=== PATIENT | male | born 1955 | race Hispanic/Latino ===

== ENCOUNTER 2016-06-11 22:13 | Emergency (ER) | payer BC ==
[~2016-06-11] VITALS: Ht 165.1 cm; Wt 81.6 kg
[~2016-06-11 22:13] MED LIST: MECL-106 PO; MECL25TA56 PO; PANT40TA PO; PANT40TA3; PROM25SU10 PR; SUVO20TA2; ZLP5T PO
--- OUTSIDE RECORDS SUMMARY | 2016-06-11 22:18 | XMS REPORT | Continuity of Care Document ---
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 Name Role Phone XANDER ALEXANDER MD PCP Insurance Providers Payer Name Policy Number Subscriber Name Relationship [facility] [id number] Eugene Verma 17 Self / Same As Patient Advance Directives Directive Response Recorded Date/Time Advance Directives No 03/07/16 9:13pm Health Care Power of Appointment Setter No 03/07/16 9:13pm Organ Donor Yes 03/07/16 9:13pm Resuscitation Status Full Code 03/07/16 9:13pm Chief Complaint and Reason for Visit Chief Complaint Dizziness/Syncope Reason for Visit Vertigo Problems Active Problems Medical Problem Onset Date Status Vertigo Unknown Acute Medications Current Home Medications Medication Dose Units Route Directions Days/Qty Instructions Start Date Suvorexant 20 Mg 30 03/07/16 Pantoprazole Sodium 40 Mg 30 03/07/16 Meclizine Hcl 25 Mg 25-50 Mg Oral Every 6 Hours for Dizziness 30 03/07 Past Home Medications Medication Directions Ordered Status Meclizine Hcl 25 Mg Tablet, 1 Each Oral Four Times Daily 08/04/09 Discontinued Zolpidem Tartrate 5 Mg Tablet, 1 Each Oral Bedtime 11/18/14 Discontinued Social History Social History Problem Response Recorded Date/Time Alcohol Use Denies Use 03/07/2016 9:13pm Recreational Drug Use No 03/07/2016 9:13pm Recent Foreign Travel No 03/07/2016 9:13pm Recent Infectious Disease Exposure No 03/07/2016 9:13pm Hospitalization with Isolation Denies 03/07/2016 9:13pm Sexually Transmitted Disease No 03/07/2016 9:13pm Smoking Status Never a Smoker 03/07/2016 9:13pm Do you dip or chew tobacco? No 11/18/2014 7:45am Recent Hopitalizations No 03/07/2016 9:13pm Sexually Transmitted Disease No 03/07/2016 9:13pm Hospitalization with Isolation Denies 03/07/2016 9:13pm Query Response Start Date Stop Date Smoking Status Never a Smoker Hospital Discharge Instructions No hospital discharge instructions. Plan of Care Discharge Date 03/07/16 10:44pm Disposition 01 HOME, SELF-CARE Instructions/Education Provided Vertigo (ED) Prescriptions See Medication Section Referrals XANDER ALEXANDER MD - Primary Care Physician Additional Instructions/Education SLOW POSITION CHANGES FOLLOW UP WITH DR. ALEXANDER IF SYMPTOMS PERSIST RETURN TO ER IF WORSE All discharge instructions reviewed with patient and/or family. Voiced understanding. Functional Status Query Response Date Recorded Patient Orientation Person Place Time Situation March 07, 2016 9:13pm Comprehension Ability Understands Concepts March 07, 2016 9:13pm Allergies, Adverse Reactions, Alerts Allergen Type Severity Reaction Status Last Updated NKANo Known Allergies Allergy Mild Active 08/04/09 Immunizations No immunization records. Vital Signs Acute Vital Signs Vital Response Date/Time Temperature (Fahrenheit) 97.8 degrees F (97.6 - 99.5) 03/07/2016 9:13pm Temperature (Calculated Celsius) 36.39217 degrees C (36.4 - 37.5) 03/07/2016 9:13pm Pulse Rate (adult) 68 bpm (60 - 90) 03/07/2016 10:43pm Respiratory Rate 12 bpm (12 - 24) 03/07/2016 10:43pm O2 Sat by Pulse Oximetry 97 % (88 - 100) 03/07/2016 10:43pm Blood Pressure 160/107 mm Hg 03/07/2016 10:43pm Blood Pressure Mean 124 mm Hg 03/07/2016 9:13pm Pain Numeric Pain Scale 0-No Pain 03/07/2016 9:13pm Height (Feet) 5 feet 03/07/2016 9:13pm Height (Inches) 5.00 inches 03/07/2016 9:13pm Height (Calculated Centimeters) 165.585034 cm 03/07/2016 9:13pm Weight (Pounds) 180 pounds 03/07/2016 9:13pm Weight (Calculated Grams) 56717.443 gm 03/07/2016 9:13pm Weight (Calculated Kilograms) 81.406623 kilograms 03/07/2016 9:13pm Calculated BMI 29.62 03/07/2016 9:13pm Capillary Refill Capillary Refill Less Than 3 Seconds 03/07/2016 9:13pm Results Laboratory Results Test Name Result Units Flags Reference Collection Date/Time Result Date/ Time Comments White Blood Count 6.3 10^3/uL 4.3-11.0 03/07/2016 9:20pm 03/07/2016 9: 31pm Red Blood Count 4.97 10^6/uL 4.35-5.85 03/07/2016 9:20pm 03/07/2016 9: 31pm Hemoglobin 14.9 G/DL 13.3-17.7 03/07/2016 9:20pm 03/07/2016 9:31pm Hematocrit 45 % 40-54 03/07/2016 9:20pm 03/07/2016 9:31pm Mean Corpuscular Volume 90 FL 80-99 03/07/2016 9:20pm 03/07/2016 9: 31pm Mean Corpuscular Hemoglobin 30 PG 25-34 03/07/2016 9:20pm 03/07/2016 9: 31pm Mean Corpuscular Hemoglobin Concent 34 G/DL 32-36 03/07/2016 9:20pm 9:31pm Red Cell Distribution Width 13.6 % 10.0-14.5 03/07/2016 9:20pm 2015 9:31pm Platelet Count 186 10^3/uL 130-400 03/07/2016 9:20pm 03/07/2016 9:31pm Mean Platelet Volume 10.1 FL 7.4-10.4 03/07/2016 9:20pm 03/07/2016 9: 31pm Neutrophils (%) (Auto) 71 % 42-75 03/07/2016 9:20pm 03/07/2016 9:31pm Lymphocytes (%) (Auto) 18 % 12-44 03/07/2016 9:20pm 03/07/2016 9:31pm Monocytes (%) (Auto) 7 % 0-12 03/07/2016 9:20pm 03/07/2016 9:31pm Eosinophils (%) (Auto) 4 % 0-10 03/07/2016 9:20pm 03/07/2016 9:31pm Basophils (%) (Auto) 0 % 0-10 03/07/2016 9:20pm 03/07/2016 9:31pm Neutrophils # (Auto) 4.5 X 10^3 1.8-7.8 03/07/2016 9:20pm 03/07/2016 9: 31pm Lymphocytes # (Auto) 1.1 X 10^3 1.0-4.0 03/07/2016 9:20pm 03/07/2016 9: 31pm Monocytes # (Auto) 0.5 X 10^3 0.0-1.0 03/07/2016 9:20pm 03/07/2016 9: 31pm Eosinophils # (Auto) 0.2 10^3/uL 0.0-0.3 03/07/2016 9:20pm 03/07/2016 9 :31pm Basophils # (Auto) 0.0 10^3/uL 0.0-0.1 03/07/2016 9:20pm 03/07/2016 9: 31pm Prothrombin Time 12.3 SEC 12.2-14.7 03/07/2016 9:20pm 03/07/2016 9: 41pm INR Comment 0.9 0.8-1.4 03/07/2016 9:20pm 03/07/2016 9:41pm INTERPRETIVE DATA SUGGESTED THERAPEUTIC RANGE FOR INR'S: VENOUS THROMBOSIS, PULMONARY EMBOLISM, OR PREVENTION OF SYSTEMIC EMBOLISM (EG. IN ATRIAL FIBRILLATION): 2.0 - 3.0 MECHANICAL PROSTHETIC HEART VALVES: 2.5 - 3.5* *NOTE: INR'S UP TO 4.5 MAY BE NECESSARY IN SELECTED GROUPS OF HIGH RISK PATIENTS. [employer] CONSENSUS CONFERENCE ON ANTITHROMBOTIC THERAPY (2000). Activated Partial Thromboplast Time 28 SEC 24-35 03/07/2016 9:20pm 9:41pm Urine Color YELLOW 03/07/2016 10:06pm 03/07/2016 10:20pm Urine Clarity CLEAR 03/07/2016 10:06pm 03/07/2016 10:20pm Urine pH 6.5 5-9 03/07/2016 10:06pm 03/07/2016 10:20pm Urine Specific [place] 1.015 * 1.016-1.022 03/07/2016 10:06pm 2015 10:20pm Urine Protein NEGATIVE NEGATIVE 03/07/2016 10:06pm 03/07/2016 10: 20pm Urine Glucose (UA) NEGATIVE NEGATIVE 03/07/2016 10:06pm 03/07/2016 10 :20pm Urine RBC (Auto) NEGATIVE NEGATIVE 03/07/2016 10:06pm 03/07/2016 10: 20pm Urine Ketones NEGATIVE NEGATIVE 03/07/2016 10:06pm 03/07/2016 10: 20pm Urine Nitrite NEGATIVE NEGATIVE 03/07/2016 10:06pm 03/07/2016 10: 20pm Urine Bilirubin NEGATIVE NEGATIVE 03/07/2016 10:06pm 03/07/2016 10: 20pm Urine Urobilinogen NORMAL MG/DL NORMAL 03/07/2016 10:06pm 03/07/2016 10 :20pm Urine Leukocyte Esterase NEGATIVE NEGATIVE 03/07/2016 10:06pm 2015 10:20pm Urine RBC NONE /HPF 03/07/2016 10:06pm 03/07/2016 10:20pm Urine WBC NONE /HPF 03/07/2016 10:06pm 03/07/2016 10:20pm Urine Bacteria NONE /HPF 03/07/2016 10:06pm 03/07/2016 10:20pm Urine Squamous Epithelial Cells RARE /HPF 03/07/2016 10:06pm 2015 10:20pm Urine Crystals NONE /LPF 03/07/2016 10:06pm 03/07/2016 10:20pm Urine Casts NONE /LPF 03/07/2016 10:06pm 03/07/2016 10:20pm Urine Mucus NEGATIVE /LPF 03/07/2016 10:06pm 03/07/2016 10:20pm Urine Culture Indicated NO 03/07/2016 10:06pm 03/07/2016 10:20pm Sodium Level 140 MMOL/L 135-145 03/07/2016 9:20pm 03/07/2016 9:50pm Potassium Level 4.1 MMOL/L 3.6-5.0 03/07/2016 9:20pm 03/07/2016 9:50pm Chloride Level 107 MMOL/L 98-107 03/07/2016 9:20pm 03/07/2016 9:50pm Carbon Dioxide Level 26 MMOL/L 21-32 03/07/2016 9:20pm 03/07/2016 9: 50pm Anion Gap 7 MMOL/L 5-14 03/07/2016 9:20pm 03/07/2016 9:50pm Blood Urea Nitrogen 11 MG/DL 7-18 03/07/2016 9:20pm 03/07/2016 9:50pm Creatinine 0.83 MG/DL 0.60-1.30 03/07/2016 9:20pm 03/07/2016 9:50pm BUN/Creatinine Ratio 13 03/07/2016 9:20pm 03/07/2016 9:50pm Estimat Glomerular Filtration Rate > 60 03/07/2016 9:20pm 2015 9:50pm GFR INTERPRETIVE DATA UNITS FOR ESTIMATED GFR (eGFR): mL/min/1.73 M2 REFERENCE RANGE FOR ESTIMATED GFR (eGFR) eGFR NORMAL eGFR >60 MODERATELY DECREASED eGFR 30-59 SEVERLY DECREASED eGFR 15-29 KIDNEY FAILURE <15 (OR DIALYSIS) Glucose Level 114 MG/DL H 70-105 03/07/2016 9:20pm 03/07/2016 9:50pm Calcium Level 9.2 MG/DL 8.5-10.1 03/07/2016 9:20pm 03/07/2016 9:50pm Magnesium Level 2.3 MG/DL 1.8-2.4 03/07/2016 9:20pm 03/07/2016 9:50pm Total Bilirubin 0.4 MG/DL 0.1-1.0 03/07/2016 9:20pm 03/07/2016 9:50pm Alkaline Phosphatase 63 U/L 40-136 03/07/2016 9:20pm 03/07/2016 9:50pm Aspartate Amino Transf (AST/SGOT) 16 U/L 5-34 03/07/2016 9:20pm 2015 9:50pm Alanine Aminotransferase (ALT/SGPT) 23 U/L 0-55 03/07/2016 9:20pm 03/07 9:50pm Total Creatine Kinase 55 U/L 30-200 03/07/2016 9:20pm 03/07/2016 9: 50pm Creatine Kinase MB 1.1 NG/ML <6.6 03/07/2016 9:20pm 03/07/2016 10:08pm Troponin I < 0.30 NG/ML <0.30 03/07/2016 9:20pm 03/07/2016 10:08pm Total Protein 6.9 G/DL 6.4-8.2 03/07/2016 9:20pm 03/07/2016 9:50pm Albumin 4.5 G/DL 3.2-4.5 03/07/2016 9:20pm 03/07/2016 9:50pm [facility] [place] Testing 1.22 UIU/ML 0.35-4.94 03/07/2016 9:20pm 03/07/2016 10:08pm Procedures Procedure Status Date Provider(s) Tracing only of electrocardiogram Active 03/07/16 RODNEY RODRIGUEZ DO Encounters Encounter Location Arrival/Admit Date Discharge/Depart Date Attending Provider Departed Emergency Room [facility] 03/07/16 7:45pm 03/07 10:44pm RODNEY RODRIGUEZ DO Recent Diagnosis
[2016-06-11] MEDS ORDERED: ZOLP10TA5 (22:22)
[2016-06-11] MEDS ORDERED: ACETAMINOPHEN 500 MG TAB (TYLENOL) PO ONE (22:30)
[2016-06-11] MEDS ORDERED: OSLT75C PO (22:59)
[2016-06-11] MEDS ORDERED: BENZ-13 PO (22:59)
[2016-06-11] MEDS ORDERED: D-ME118S7 PO (22:59)
[2016-06-11] MEDS ORDERED: RX-OSELTAMIVIR 75 MG (TAMIFLU) BOX OF 10 PO STA (22:59)
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
[2016-06-11] MEDS ORDERED: PROMETHAZINE/ CODEINE SYRUP 5 ML UDC PO ONE (23:00)
[2016-06-11] MEDS ORDERED: BENZONATATE 100 MG (TESSALON) CAPSULE PO ONE (23:06)
[2016-06-11 23:13] VITALS: BP 148/90
[2016-06-12] MEDS ORDERED: BENZONATATE 100 MG (TESSALON) CAPSULE PO SCH (09:00)
== END 2016-06-11 23:15 | disposition home or self-care (01) ==
LOC: EDUNIT# 22:13 → ER 22:14
DX: J09.X2 Influenza due to identified novel influenza A virus with other respiratory manifestations (principal)
CPT/HCPCS: 87804; 99283

== ENCOUNTER → 2017-07-21 | Outpatient (CLI) | payer BC ==
[~2017-07-21] MED LIST changes: +BENZ-13 PO; +D-ME118S7 PO; +OSLT75C PO; +ZOLP10TA5
--- NOTE | 2017-07-21 10:41 | Diagnostic Imaging Report ---
PROCEDURE: CT urinary tract, rule out kidney stone. TECHNIQUE: Multiple contiguous axial images were obtained through the abdomen and pelvis without the use of intravenous contrast. INDICATION: Lung bases are clear. FINDINGS: There is a 1.9 cm indeterminate low-density mass in the liver, left lobe seen on series 2 image 16. This is indeterminate. No additional hepatic mass is seen. Gallbladder appears unremarkable. There is no biliary dilatation. The pancreas, spleen and adrenal glands appear unremarkable. The kidneys, ureters and bladder appear unremarkable. There is diverticulosis without evidence of diverticulitis. Appendix appears normal. There is no free fluid, free air or adenopathy. Abdominal aorta appears normal in caliber. There is minimal atherosclerosis. There are postoperative changes of left groin. There are mild degenerative changes in the spine. IMPRESSION: 1. No acute abdominal process is seen. 2. There is an indeterminate 1.8 cm hepatic mass. Contrast enhanced CT scan of the liver is recommended for further evaluation. 3. Diverticulosis without evidence of diverticulitis. Dictated by: Dictated on workstation # [id number]
== END ==
LOC: RAD 10:00
PROVIDERS: ATTEND Internal Medicine
DX: K57.90 Diverticulosis of intestine, part unspecified, without perforation or abscess without bleeding (principal); R16.0 Hepatomegaly, not elsewhere classified; R31.9 Hematuria, unspecified
CPT/HCPCS: 74176

== ENCOUNTER → 2017-08-29 | Outpatient (CLI) | payer BC ==
[~2017-08-29] MED LIST changes: +CATHETER FLUSH 10 ML SYR IV PRN; +IOHEXOL 350 MG/ML 100 ML (OMNIPAQUE 350) VIAL IV ONE; +NS 250 ML (IVPB) BAG IV ONE
[2017-08-29 08:13] LABS: BUN/CREATININE RATIO 21; CALCIUM 9.6 MG/DL (8.5-10.1); CARBON DIOXIDE 23 MMOL/L (21-32); CHLORIDE 110 MMOL/L (98-107); CREATININE SERUM 0.84 MG/DL (0.60-1.30); GFR ESTIMATED > 60; GLUCOSE 97 MG/DL (70-105); SODIUM 143 MMOL/L (135-145)
--- NOTE | 2017-08-29 09:09 | Diagnostic Imaging Report ---
PROCEDURE: CT abdomen with contrast. TECHNIQUE: Multiple contiguous axial images were obtained through the abdomen after the administration of intravenous contrast. DATE: August 29, 2017. INDICATION: 61-year-old male, history of hepatitis C. COMPARISON: CT abdomen and pelvis without contrast July 21, 2017. FINDINGS: Liver mass protocol is with and without contrast study including multiphase postcontrast imaging. On the current exam, precontrast images are not obtained. The previously noted low-attenuation lesion in the liver does demonstrate a peripheral nodular type enhancement pattern on initial arterial phase postcontrast imaging and is essentially isodense to liver on delayed phase postcontrast imaging. The liver is not nodular in outer contour to specifically suggest cirrhosis. There is a low-attenuation lesion in the right lobe of the liver seen on portal venous phase postcontrast imaging measuring 4 mm in size on axial image 22, which is too small to characterize. There is no additional identified liver lesion. The main, right, and left portal veins are patent. The gallbladder is unremarkable. There is no intrahepatic or extrahepatic bile duct dilation. The main pancreatic duct is not abnormally dilated. The pancreatic parenchyma is unremarkable. The spleen is normal in size. The adrenal glands are unremarkable. Unremarkable appearance of the renal parenchyma. There is no hydronephrosis. There is a very small hiatal hernia. The visualized portions of the intestinal tract are not distended. There is no identified free intraperitoneal air. There is no drainable fluid collection. There is no identified free fluid. There is a small fat-containing umbilical hernia. There are atherosclerotic calcifications. There is no identified abnormally enlarged lymph node within the abdomen which meets CT size criteria for adenopathy. There is no identified acute bony abnormality. IMPRESSION: 1. Previously noted low-attenuation lesion within the left lobe of the liver demonstrates a peripheral nodular pattern of enhancement and is essentially isodense to liver on delayed postcontrast imaging. This is favored to relate to a hemangioma although is difficult to definitively diagnose. 2. No imaging findings to suggest cirrhosis. 3. 4 mm low-attenuation lesion in the right lobe of the liver to small to characterize. 4. Very small hiatal hernia. Dictated by: Dictated on workstation # [id number]
== END ==
LOC: RAD 07:38
PROVIDERS: ATTEND Internal Medicine
DX: K76.89 Other specified diseases of liver (principal); K44.9 Diaphragmatic hernia without obstruction or gangrene; Z86.19 Personal history of other infectious and parasitic diseases
CPT/HCPCS: 36415; 74160; 80048; 82105

== ENCOUNTER → 2018-01-23 | Outpatient (CLI) | payer BC ==
[~2018-01-23] MED LIST changes: -BENZ-13 PO; +BENZ100C18 PO; -CATHETER FLUSH 10 ML SYR IV PRN
--- NOTE | 2018-01-23 08:33 | Diagnostic Imaging Report ---
PROCEDURE: CT abdomen with contrast only. TECHNIQUE: Multiple contiguous axial images were obtained through the abdomen after the administration of intravenous contrast. INDICATION: Followup hepatic nodule. COMPARISON: Comparison is made with prior CT from 08/29/2017. FINDINGS: The lung bases are clear. The low attenuation lesion in the left lobe of the liver with peripheral nodular enhancement is again noted and appears similar to prior CT. This measures approximately 15 mm compared to 21 mm on prior exam. This does become isodense to the liver on the delayed images and remains most suggestive of a hemangioma. Tiny low-attenuation lesion in the right lobe of the liver best seen on the portal venous phase appears stable and may represent a cyst. The gallbladder is unremarkable. The pancreas and spleen are unremarkable. No adrenal mass is detected. Kidneys appear stable. The aorta is nonaneurysmal. No central, retroperitoneal or mesenteric lymphadenopathy is seen. IMPRESSION: Stable liver lesions when compared with prior CT from 08/29/2017. The larger lesion in the left lobe continues to be favored to represent a hemangioma. Tiny lesion right lobe is too small to accurately characterize but remain stable and may represent a small cyst. Dictated by: Dictated on workstation # [id number]
== END ==
LOC: RAD 07:12
PROVIDERS: ATTEND Internal Medicine
DX: Z09 Encounter for follow-up examination after completed treatment for conditions other than malignant neoplasm (principal); K76.89 Other specified diseases of liver
CPT/HCPCS: 74160

== ENCOUNTER → 2019-11-05 | Outpatient (CLI) | payer BC ==
[~2019-11-05] MED LIST changes: +CATHETER FLUSH 10 ML SYR IV PRN; -D-ME118S7 PO; +HOLD METFORMIN - RECEIVED CONTRAST 20 ML VIAL IV SCH; -MECL-106 PO; +MECL-149 PO; +NS 100 ML (IVPB) BAG IV ONE; -NS 250 ML (IVPB) BAG IV ONE; +PROM118S5 PO
--- NOTE | 2019-11-05 10:31 | Diagnostic Imaging Report ---
CT NECK/CHEST W TECHNIQUE: CT imaging of the neck and chest was performed with IV contrast. Automatic exposure controls were utilized to keep dose as low as reasonably achievable. INDICATION: Swelling and dysphasia. Difficulty speaking. COMPARISON: None available. FINDINGS: CT NECK: There are no CT features that would suggest vocal cord paralysis. The true and false vocal cords are symmetric. No abnormal mural thickening within the pharynx or larynx. Proximal esophagus is unremarkable. No lymphadenopathy is present in the neck. There is no mass along the expected course of the vagus nerve on either side. Patchy mucosal thickening is seen in the left ethmoid sinuses. Remainder of the visualized paranasal sinuses are clear. Mastoid air cells are clear. No concerning abnormality in the cervical spine or mandible. CT CHEST: No endoluminal nodule within the trachea. No pulmonary mass or suspicious pulmonary nodule. Subtotal atelectasis within the right middle lobe has no central obstructing endoluminal lesion within the bronchus. No features of pneumonia or interstitial lung disease. Thyroid is normal. No pleural effusion or pneumothorax. No supraclavicular or axillary lymphadenopathy. There are no enlarged mediastinal, hilar, or juxtaphrenic lymph nodes. Multiple small/subcentimeter paratracheal lymph nodes are present and likely reactive in nature. Small sliding-type hiatal hernia. Heart is on the upper limits of normal in size without pericardial effusion. There are few scattered coronary artery calcifications. Diffuse hypoattenuation in the liver raises the possibility of hepatic steatosis. No concerning abnormality in the upper abdomen. No worrisome focal osseous lesions. IMPRESSION: 1. No features of vocal cord paralysis or mass lesion along the expected courses of the vagus nerve. 2. No cervical lymphadenopathy or abnormal wall thickening within the pharynx or larynx. 3. No acute abnormality or features of neoplasm in the chest. Subsegmental atelectasis within the middle lobe is present. 4. Small sliding-type hiatal hernia. 5. Potential mild diffuse hepatic steatosis. Dictated by: Dictated on workstation # [id number]
== END ==
LOC: RAD 09:09
PROVIDERS: ATTEND Internal Medicine
DX: R47.02 Dysphasia (principal); K44.9 Diaphragmatic hernia without obstruction or gangrene; K76.89 Other specified diseases of liver
CPT/HCPCS: 70491; 71260

== ENCOUNTER 2019-11-30 05:29 | Outpatient (RCR) | payer BC ==
[~2019-11-30] VITALS: Ht 165 cm; Wt 79.5 kg
[~2019-11-30 05:29] MED LIST changes: -CATHETER FLUSH 10 ML SYR IV PRN; -HOLD METFORMIN - RECEIVED CONTRAST 20 ML VIAL IV SCH; -IOHEXOL 350 MG/ML 100 ML (OMNIPAQUE 350) VIAL IV ONE; -NS 100 ML (IVPB) BAG IV ONE; +PANT40TA3 PO; +ZOLP10TA PO
== END 2019-11-30 13:19 | disposition home or self-care (01) ==
LOC: PREOP 05:29
PROVIDERS: ATTEND Internal Medicine
DX: Z01.818 Encounter for other preprocedural examination (principal); R13.10 Dysphagia, unspecified; Z20.828 Contact with and (suspected) exposure to other viral communicable diseases
CPT/HCPCS: 87635

== ENCOUNTER 2019-12-03 08:26 | Day surgery (SDC) | payer BC ==
[~2019-12-03] VITALS: Ht 165 cm; Wt 79.5 kg
[2019-12-03] VITALS (11 sets, daily range): BP systolic 110–144; BP diastolic 65–99
[2019-12-03] MEDS ORDERED: D5 LR IV SOLUTION 1,000 ML IV ONE (08:33)
[2019-12-03] MEDS ORDERED: D5 LR IV SOLUTION 1,000 ML IV STA (08:35)
--- NOTE | 2019-12-03 08:42 | Pre-Op Note & Conscious Sedat ---
Pre-Operative Progress Note H&P Reviewed The H&P was reviewed, patient examined and no changes noted. Date H&P Reviewed: Dec 03, 2019 Time H&P Reviewed: 08:42 Conscious Sedation Pre-Proced ASA Score 2 For ASA 3 and 4: Consider anesthesia and medical clearance. Also, for patients with a history of failed moderate sedation consider anesthesia. Airway Lungs Heart ASA score ASA 1: a normal healthy patient ASA 2: a patient with a mild systemic disease (mid diabetes, controlled hypertension, obesity ASA 3: a patient with a severe systemic disease that limits activity (angina, COPD, prior Myocardial infarction) ASA 4: a patient with an incapacitating disease that is a constant threat to life (CHF, renal failure) ASA 5: a moribund patient not expected to survive 24 hrs. (ruptured aneurysm) ASA 6: a declared brain- patient whose organs are being harvested. For emergent operations, add the letter E after the classification Mallampati Classification Grade 2 Sedation Plan Analgesia, Amnesia, Plan communicated to team members, Discussed options with patient/fam, Discussed risks with patient/fam The patient is an appropriate candidate to undergo the planned procedure, sedation, and anesthesia. The patient immediately re-assessed prior to indication. XANDER ALEXANDER MD Dec 03, 2019 08:42
[2019-12-03] MEDS ORDERED: fentaNYL INJECTION 100 MCG/2 ML AMP IVP ONE (08:45)
[2019-12-03] MEDS ORDERED: HURRICAINE EXT TUBE (BENZOCAINE) XX PRN (08:45)
[2019-12-03] MEDS ORDERED: LIDOCAINE JELLY 2% 6 ML SYRINGE MM PRN (08:45)
[2019-12-03] MEDS ORDERED: MIDAZOLAM 5 MG/5 ML (VERSED) VIAL ONE (09:00)
[2019-12-03] MEDS ORDERED: fentaNYL INJECTION 100 MCG/2 ML AMP ONE (09:00)
[2019-12-03] MEDS ORDERED: HURRICAINE EXT TUBE (BENZOCAINE) ONE (09:00)
[2019-12-03] MEDS ORDERED: LIDOCAINE JELLY 2% 6 ML SYRINGE ONE (09:00)
[2019-12-03] MEDS: MIDAZOLAM 5 MG/5 ML (VERSED) VIAL IV PRN ×2 (09:22→09:27)
--- OUTSIDE RECORDS SUMMARY | 2019-12-03 10:53 | XMS REPORT | Continuity of Care Document ---
Demographics Preferred Language Unknown Marital Status Unknown Anabaptist Affiliation Unknown Race Unknown Ethnic Group Unknown Author Organization Unknown Address Unknown Phone Unavailable Allergies Active Description Code Type Severity Reaction Onset Reported/Identified Relationship to Patient Clinical Status Yes NKANo Known Allergies NKA Miscellaneous Allergy Mild N/A 08/04/2009 Yes No Known Drug Allergies [id number] Drug Allergy Unknown N/A 11/26/2019 Medications There is no data. Problems Date Dx Coded Attending Type Code Diagnosis Diagnosed By 05/07/2013 CATHERINE HERMAN, XANDER Lucia Ot 553. 3 DIAPHRAGMATIC HERNIA 11/18/2014 CATHERINE HERMAN, XANDER Lucia Ot 070. 70 UNSPECIFIED VIRAL HEPATITIS C WITHOUT HE 11/18/2014 CATHERINE HERMAN, XANDER Lucia Ot 211. 3 BENIGN NEOPLASM LG BOWEL 11/18/2014 CATHERINE HERMAN, XANDER Lucia Ot 562. 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 84 11/22/2014 CATHERINE HERMAN, XANDER Lucia Ot V72. 84 05/16/2015 CATHERINE HERMAN, XANDER Lucia Ot J98. 4 06/01/2015 CATHERINE HERMAN, XANDER Lucia Ot R35. 0 06/09/2015 XANDER ALEXANDER MD Ot R35. 0 03/07/2016 RODNEY RODRIGUEZ DO Ot H81.13 BENIGN PAROXYSMAL VERTIGO, BILATERAL 03/07/2016 RODNEY RODRIGUEZ DO Ot I51.7 CARDIOMEGALY 03/07/2016 RODNEY RODRIGUEZ DO Ot R42 DIZZINESS AND GIDDINESS 03/08/2016 RODNEY RODRIGUEZ DO Ot H81.13 BENIGN PAROXYSMAL VERTIGO, BILATERAL 03/08/2016 RODNEY RODRIGUEZ DO Ot I51.7 CARDIOMEGALY 03/08/2016 RODNEY RODRIGUEZ DO Ot R42 DIZZINESS AND GIDDINESS 06/11/2016 RODNEY RODRIGUEZ DO Ot J09.X2 FLU DUE TO IDENT NOVEL INFLUENZA A VIRUS 06/11/2016 RODNEY RODRIGUEZ DO Ot R05 COUGH 06/12/2016 RODNEY RODRIGUEZ DO, Ot J09.X2 FLU DUE TO IDENT NOVEL INFLUENZA A VIRUS 06/12/2016 JENNIFER DO, RODNEY K Ot R05 COUGH 07/18/2017 XANDER ALEXANDER MD Ot 070. 70 UNSPECIFIED VIRAL HEPATITIS C WITHOUT HE 07/18/2017 XANDER ALEXANDER MD Ot 575. 6 GB CHOLESTEROLOSIS 07/18/2017 XANDER ALEXANDER MD Ot 789. 00 ABDOMINAL PAIN, UNSPECIFIED SITE 07/18/2017 XANDER ALEXANDER MD Ot V72. 84 EXAM PRE-OPERATIVE NOS 07/18/2017 XANDER ALEXANDER MD Ot V72. 84 EXAM PRE-OPERATIVE NOS 07/18/2017 CATHERINE HERMAN, XANDER Lucia Ot J98. 4 OTHER DISORDERS OF LUNG 07/18/2017 XANDER ALEXANDER MD Ot R35. 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 0 HEPATOMEGALY, NOT ELSEWHERE CLASSIFIED 07/22/2017 XANDER ALEXANDER MD Ot R31. 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 0 HEPATOMEGALY, NOT ELSEWHERE CLASSIFIED 08/06/2017 XANDER ALEXANDER MD Ot R31. 9 HEMATURIA, UNSPECIFIED 09/01/2017 XANDER ALEXANDER MD Ot K44. 9 DIAPHRAGMATIC HERNIA WITHOUT OBSTRUCTION 09/01/2017 XANDER ALEXANDER MD Ot K76. 89 OTHER SPECIFIED DISEASES OF LIVER 09/01/2017 XANDER ALEXANDER MD Ot Z86. 19 PERSONAL HISTORY OF OTHER INFECTIOUS AND 09/10/2017 XANDER ALEXANDER MD Ot K44. 9 DIAPHRAGMATIC HERNIA WITHOUT OBSTRUCTION 09/10/2017 XANDER ALEXANDER MD Ot K76. 89 OTHER SPECIFIED DISEASES OF LIVER 09/10/2017 XANDER ALEXANDER MD Ot Z86. 19 PERSONAL HISTORY OF OTHER INFECTIOUS AND 01/20/2018 XANDER ALEXANDER MD Ot 070. 70 UNSPECIFIED VIRAL HEPATITIS C WITHOUT HE 01/20/2018 XANDER ALEXANDER MD Ot 575. 6 GB CHOLESTEROLOSIS 01/20/2018 XANDER ALEXANDER MD Ot 789. 00 ABDOMINAL PAIN, UNSPECIFIED SITE 01/20/2018 XANDER ALEXANDER MD Ot V72. 84 EXAM PRE-OPERATIVE NOS 01/20/2018 XANDER ALEXANDER MD Ot V72. 84 EXAM PRE-OPERATIVE NOS 01/20/2018 XANDER ALEXANDER MD Ot J98. 4 OTHER DISORDERS OF LUNG 01/20/2018 XANDER ALEXANDER MD Ot R35. 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 0 HEPATOMEGALY, NOT ELSEWHERE CLASSIFIED 01/20/2018 XANDER ALEXANDER MD Ot R31. 9 HEMATURIA, UNSPECIFIED 01/20/2018 XANDER ALEXANDER MD Ot K44. 9 DIAPHRAGMATIC HERNIA WITHOUT OBSTRUCTION 01/20/2018 XANDER ALEXANDER MD Ot K76. 89 OTHER SPECIFIED DISEASES OF LIVER 01/20/2018 XANDER ALEXANDER MD Ot Z86. 19 PERSONAL HISTORY OF OTHER INFECTIOUS AND 01/26/2018 XANDER ALEXANDER MD Ot K76. 89 OTHER SPECIFIED DISEASES OF LIVER 01/26/2018 XANDER ALEXANDER MD Ot Z09 ENCNTR FOR F/U EXAM AFT TRTMT FOR COND O 02/04/2018 XANDER ALEXANDER MD Ot K76. 89 OTHER SPECIFIED DISEASES OF LIVER 02/04/2018 XANDER ALEXANDER MD Ot Z09 ENCNTR FOR F/U EXAM AFT TRTMT FOR COND O 11/08/2019 XANDER ALEXANDER MD Ot K44. 9 DIAPHRAGMATIC HERNIA WITHOUT OBSTRUCTION 11/08/2019 XANDER ALEXANDER MD Ot K76. 89 OTHER SPECIFIED DISEASES OF LIVER 11/08/2019 XANDER ALEXANDER MD Ot R47. 02 DYSPHASIA 11/23/2019 XANDER ALEXANDER MD Ot K44. 9 DIAPHRAGMATIC HERNIA WITHOUT OBSTRUCTION 11/23/2019 XANDER ALEXANDER MD Ot K76. 89 OTHER SPECIFIED DISEASES OF LIVER 11/23/2019 XANDER ALEXANDER MD Ot R47. 02 DYSPHASIA Procedures There is no data. Results Test Result Range Complete blood count (CBC) with automate d white blood cell (WBC) differential - 03/07/16 21:20 Blood leukocytes automated count (number/volume) 6.3 10*3/uL 4.3-11.0 Blood erythrocytes automated count (number/volume) 4.97 10*6/uL 4.35-5.85 Venous blood hemoglobin measurement (mass/volume) 14.9 g/dL 13.3-17.7 Blood hematocrit (volume fraction) 45 % 40-54 Automated erythrocyte mean corpuscular volume 90 [ foz_us] 80-99 Automated erythrocyte mean corpuscular h emoglobin (mass per erythrocyte) 30 pg 25-34 Automated erythrocyte mean corpuscular h emoglobin concentration measurement (mass/volume) 34 g/dL 32-36 Automated erythrocyte distribution width ratio 13. 6 % 10.0- 14.5 Automated blood platelet count (count/volume) 186 10*3/uL 130-400 Automated blood platelet mean volume measurement 10.1 [foz_us] 7.4-10.4 Automated blood neutrophils/100 leukocytes 71 % 42-75 Automated blood lymphocytes/100 leukocytes 18 % 12-44 Blood monocytes/100 leukocytes 7 % 0-12 Automated blood eosinophils/100 leukocytes 4 % 0-10 Automated blood basophils/100 leukocytes 0 % 0-10 Blood neutrophils automated count (number/volume) 4.5 10*3 1.8-7.8 Blood lymphocytes automated count (number/volume) 1.1 10*3 1.0-4.0 Blood monocytes automated count (number/volume) 0. 5 10*3 0.0-1.0 Automated eosinophil count 0.2 10*3/uL 0 .0-0.3 Automated blood basophil count (count/volume) 0.0 10*3/uL 0.0-0.1 PT panel in platelet poor plasma by coag ulation assay - 03/07/16 21:20 Prothrombin time (PT) in platelet poor plasma by coagu lation assay 12.3 s 12.2-14.7 INR in platelet poor plasma or blood by coagulation as say 0.9 0.8-1.4 Activated partial thromboplastin time (a PTT) in platelet poor plasma bycoagulation assay - 03/07/16 21:20 Activated partial thromboplastin time (a PTT) in platelet poor plasma bycoagulation assay 28 s 24-35 Comprehensive metabolic panel - 03/07/16 21:20 Serum or plasma sodium measurement (moles/volume) 140 mmol/L 135-145 Serum or plasma potassium measurement (moles/volume) 4.1 mmol/L 3.6-5.0 Serum or plasma chloride measurement (moles/volume) 107 mmol/L 98-107 Carbon dioxide 26 mmol/L 21-32 Serum or plasma anion gap determination (moles/volume) 7 mmol/L 5-14 Serum or plasma urea nitrogen measurement (mass/volume ) 11 mg/dL 7-18 Serum or plasma creatinine measurement (mass/volume) 0.83 mg/dL 0.60-1.30 Serum or plasma urea nitrogen/creatinine mass ratio 13 NRG Serum or plasma creatinine measurement w ith calculation of estimated glomerular filtration rate > NRG Serum or plasma glucose measurement (mass/volume) 114 mg/dL 70-105 Serum or plasma calcium measurement (mass/volume) 9.2 mg/dL 8.5-10.1 Serum or plasma total bilirubin measurement (mass/volu me) 0.4 mg/dL 0.1-1.0 Serum or plasma alkaline phosphatase ender surement (enzymatic activity/volume) 63 U/L 40-136 Serum or plasma aspartate aminotransfera se measurement (enzymatic activity/volume) 16 U/L 5-34 Serum or plasma alanine aminotransferase measurement (enzymatic activity/volume) 23 U/L 0-55 Serum or plasma protein measurement (mass/volume) 6.9 g/dL 6.4-8.2 Serum or plasma albumin measurement (mass/volume) 4.5 g/dL 3.2-4.5 Magnesium - 03/07/16 21:20 Magnesium 2.3 mg/dL 1.8-2.4 Serum or plasma creatine kinase measurem ent (enzymatic activity/volume) - 03/07/16 21:20 Serum or plasma creatine kinase measurem ent (enzymatic activity/volume) 55 U/L 30-200 Serum or plasma creatine kinase MB measu rement (enzymatic activity/volume) - 03/07/16 21:20 Serum or plasma creatine kinase MB measu rement (enzymatic activity/volume) 1.1 ng/mL <6.6 Serum or plasma troponin i.cardiac measu rement (mass/volume) - 03/07/16 21:20 Serum or plasma troponin i.cardiac measurement (mass/v olume) < ng/mL <0.30 Serum or plasma thyrotropin measurement by detection limit <=0.05 miu/l (units/volume) - 03/07/16 21:20 Serum or plasma thyrotropin measurement by detection limit <=0.05 miu/l (units/volume) 1.22 u[iU]/mL 0.35-4.94 Complete urinalysis with reflex to cultu re - 03/07/16 22:06 Urine color determination YELLOW NRG Urine clarity determination CLEAR NR G Urine pH measurement by test strip 6.5 5-9 Specific gravity of urine by test strip 1.015 1.016-1.022 Urine protein assay by test strip, semi-quantitative NEGATIVE NEGATIVE Urine glucose detection by automated test strip NE GATIVE NEGATIVE Erythrocytes detection in urine sediment by light micr oscopy NEGATIVE NEGATIVE Urine ketones detection by automated test strip NE GATIVE NEGATIVE Urine nitrite detection by test strip NEGATIVE NEGATIVE Urine total bilirubin detection by test strip NEGA TIVE NEGATIVE Urine urobilinogen measurement by automated test strip (mass/volume) NORMAL NORMAL Urine leukocyte esterase detection by dipstick NEG ATIVE NEGATIVE Automated urine sediment erythrocyte cou nt by microscopy (number/high power field) NONE NRG Automated urine sediment leukocyte count by microscopy (number/high power field) NONE NRG Bacteria detection in urine sediment by light microsco py NONE NRG Squamous epithelial cells detection in u rine sediment by light microscopy RARE NRG Crystals detection in urine sediment by light microsco py NONE NRG Casts detection in urine sediment by light microscopy NONE NRG Mucus detection in urine sediment by light microscopy NEGATIVE NRG Complete urinalysis with reflex to culture NO NRG Influenza virus A and B antigen detectio n - 06/11/16 22:23 CALL POSITIVES (F1 HELP) CALLED TO KATIE IN ED AT 2251 NRG FLU RESULT POSITIVE FOR INFLUENZA A ANT IGEN, NEG FOR B ANTIGEN, BY IA [facility] Whole blood basic metabolic panel - 08/11 07:50 Serum or plasma sodium measurement (moles/volume) 143 mmol/L 135-145 Serum or plasma potassium measurement (moles/volume) 4.0 mmol/L 3.6-5.0 Serum or plasma chloride measurement (moles/volume) 110 mmol/L 98-107 Carbon dioxide 23 mmol/L 21-32 Serum or plasma anion gap determination (moles/volume) 10 mmol/L 5-14 Serum or plasma urea nitrogen measurement (mass/volume ) 18 mg/dL 7-18 Serum or plasma creatinine measurement (mass/volume) 0.84 mg/dL 0.60-1.30 Serum or plasma urea nitrogen/creatinine mass ratio 21 NRG Serum or plasma creatinine measurement w ith calculation of estimated glomerular filtration rate > NRG Serum or plasma glucose measurement (mass/volume) 97 mg/dL 70-105 Serum or plasma calcium measurement (mass/volume) 9.6 mg/dL 8.5-10.1 Serum or plasma aacqg-4-geruebmzwzf.tumo r marker measurement (mass/volume) - 08/29/17 07:50 Serum or plasma dtgpr-5-ojhbtimfrko.tumo r marker measurement (mass/volume) 2.5 % 0.0-8.8 COVID-19 IgG ANTIBODY - 09/30/19 13:43 SARS CoV 2 AB IGG NEGATIVE NRG Encounters ACCT No. Visit Date/Time Discharge Status Pt. Type Provider Facility Loc./Unit Complaint [id number] 09/30/2019 13:00:00 Document Registration [id number] 11/30/2019 05:29:00 020 13:19:00 DIS Outpatient XANDER ALEXANDER MD Via [facility] PREOP DYSPHAGIA [id number] 11/05/2019 09:09:00 020 23:59:59 CLS Outpatient XANDER ALEXANDER MD [facility] RAD SWELLING DYSPHAGIA [id number] 01/23/2018 07:12:00 018 23:59:59 CLS Outpatient XANDER ALEXANDER MD [facility] RAD F/U HEPATIC NODULE [id number] 08/29/2017 07:38:00 018 23:59:59 CLS Outpatient XANDER ALEXANDER MD [facility] RAD HX OF HEPATITIS C [id number] 07/21/2017 10:15:00 018 23:59:59 CLS Outpatient XANDER ALEXANDER MD [facility] RAD GROSS HEMATURIA, L FLAN K PAIN [id number] 06/11/2016 22:14:00 017 23:15:00 DIS Emergency JENNIFER DO, RODNEY Marina a [facility] ER FEVER [id number] 03/07/2016 19:45:00 016 22:44:00 DIS Emergency JENNIFER MOREIRA, RODNEY Lozada Vi [facility] ER DIZZY [id number] 05/29/2015 13:52:00 23:59:59 CLS Outpatient XANDER ALEXANDER MD [facility] LAB ELEVATED URINARY FREQUE NCY [id number] 05/01/2015 15:59:00 23:59:59 CLS Outpatient XANDER ALEXANDER MD [facility] RAD F.Y ON RM 2 [id number] 11/18/2014 07:31:00 10:15:00 DIS Outpatient XANDER ALEXANDER MD [facility] HX COLON POLYPS; HEP C [id number] 11/17/2014 06:48:00 23:59:59 CLS Outpatient XANDER ALEXANDER MD [facility] PREOP HX COLON POLYPS; HEP C [id number] 05/07/2013 08:01:00 013 12:10:00 DIS Outpatient XANDER ALEXANDER MD [facility] ABDOMINAL PAIN [id number] 05/06/2013 07:10:00 013 23:59:59 CLS Outpatient XANDER ALEXANDER MD [facility] PREOP ABDOMINAL PAIN [id number] 04/26/2013 08:43:00 013 23:59:59 CLS Outpatient XANDER ALEXANDER MD [facility] RAD ABD PAIN, RADIATING TO BACK, HX OF HEP C [id number] 12/03/2019 09:15:00 P EN Preadmit XANDER ALEXANDER MD [facility] ENDO DYSPHAGIA.
--- NOTE | 2019-12-03 10:58 | OPERATIVE REPORT ---
DATE OF SERVICE: EGD SUMMARY INDICATION FOR THE PROCEDURE: Dysphagia. DESCRIPTION OF PROCEDURE: The patient was placed in the left lateral decubitus position. The endoscope was inserted in the oral cavity and under direct visualization, esophagus was intubated. Endoscope was passed down the esophagus through the stomach and the second portion of the duodenum. Careful inspection was made as the endoscope was withdrawn. The patient tolerated the procedure well. FINDINGS: The proximal and mid esophagus were unremarkable. A small hiatal hernia is present without evidence for erosive esophagitis and stricture formation or extrinsic compression. No obvious evidence for Colin's change was noted. There was some mild erythema noted at the Z line. A biopsy was obtained and submitted for histopathology. The cardia, fundus, antrum, pylorus, pyloric channel, duodenal bulb and second portion of the duodenum were unremarkable with no evidence for gastritis, duodenitis or peptic ulcer disease. ASSESSMENT: Small hiatal hernia is present without evidence for stricture formation or erosive esophagitis. There was some mild erythema noted at the Z line. Biopsy was obtained and submitted for histopathology. I discussed the importance of trying to eat slower careful, attention to mastication and drinking more water with his meals. Job ID: [id number] DocumentID: [id number] Dictated Date: 12/03/2019 09:57:57 Rap Artist Date: 12/03/2019 10:57:52 Dictated By: XANDER ALEXANDER MD
== END 2019-12-03 10:30 | disposition home or self-care (01) ==
LOC: ENDO 08:26
PROVIDERS: ATTEND Internal Medicine
DX: K22.70 Barrett's esophagus without dysplasia (principal); K44.9 Diaphragmatic hernia without obstruction or gangrene; Z79.899 Other long term (current) drug therapy
CPT/HCPCS: 88305

== ENCOUNTER 2020-07-19 05:28 | Outpatient (RCR) | payer BC ==
[~2020-07-19] VITALS: Ht 165.1 cm; Wt 79.5 kg
[~2020-07-19 05:28] MED LIST changes: -PANT40TA3; -PANT40TA3 PO; +PANT40TA52; +PANT40TA52 PO; +TRIA1TAB5 PO
== END 2020-07-19 09:17 | disposition home or self-care (01) ==
LOC: PREOP 05:28
PROVIDERS: ATTEND Internal Medicine
DX: Z01.812 Encounter for preprocedural laboratory examination (principal); K22.719 Barrett's esophagus with dysplasia, unspecified; Z20.822 Contact with and (suspected) exposure to COVID-19
CPT/HCPCS: 87635

== ENCOUNTER 2020-07-21 07:32 | Day surgery (SDC) | payer BC ==
--- NOTE | 2020-07-14 17:59 | HISTORY AND PHYSICAL ---
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 He had short segment disease without evidence for dysplasia. He has been compliant with proton pump inhibitor therapy and as long as he takes his medication, he reports no heartburn. He is not careful with chewing of his food with flake drier foods like bread or with meats, he will still note some mild dysphagia. He denies any history of regurgitation, has not previously required dilatation. He has had no reported change in weight and has noted no melena or bright red blood per rectum. He reports he is continuing to have episodes of dizziness described as vertiginous in nature, worse when he turns his head towards the left as I recall with the spinning component usually lasting less than a minute. He will have some low-grade nausea with this. He has also noted worsening tinnitus, it is bilateral, but worse on his right and he has hearing loss he believes on the right side. He has an appointment with Dr. Blanchard for a hearing test and further evaluation I believe next week. PAST MEDICAL HISTORY: Significant for hepatitis C, but has been cured with antiviral therapy. PHYSICAL EXAMINATION: GENERAL: Reveals a pleasant overweight white male in no acute distress. VITAL SIGNS: Blood pressure 118/84, weight 182 pounds, stable. HEENT: Unremarkable. Sclerae nonicteric. CHEST: Clear. CARDIOVASCULAR: Reveals a regular rate and rhythm without murmur, S3 or S4. ABDOMEN: Soft, supple without mass, organomegaly or tenderness. EXTREMITIES: Reveal no cyanosis, clubbing or edema. ASSESSMENT: 1. The patient is set up for surveillance EGD due to past history of Colin's and also reporting dysphagia. 2. Vertigo with tinnitus and hearing loss. The patient is being referred for further evaluation to Dr. Blanchard. Job ID: [id number] DocumentID: [id number] Dictated Date: 07/14/2020 17:35:36 Casting Room Helper Date: 07/14/2020 17:58:57 Dictated By: XANDER ALEXANDER MD
[2020-07-21] VITALS (9 sets, daily range): BP systolic 128–142; BP diastolic 90–99
[~2020-07-21] VITALS: Ht 165.1 cm; Wt 79.5 kg
[~2020-07-21 07:32] MED LIST changes: +D5 LR IV SOLUTION 1,000 ML IV ONE
[2020-07-21] MEDS ORDERED: D5 LR IV SOLUTION 1,000 ML IV STA (07:37)
[2020-07-21] MEDS ORDERED: fentaNYL INJ 100 MCG/2 ML AMP IVP ONE (07:45)
[2020-07-21] MEDS ORDERED: HURRICAINE EXT TUBE (BENZOCAINE) XX PRN (07:45)
[2020-07-21] MEDS ORDERED: MIDAZOLAM 5 MG/5 ML (VERSED) VIAL IV ONE (07:45)
[2020-07-21] MEDS ORDERED: MIDAZOLAM 5 MG/5 ML (VERSED) VIAL ONE (08:17)
[2020-07-21] MEDS ORDERED: LIDOCAINE JELLY 2% 6 ML SYRINGE ONE (08:17)
[2020-07-21] MEDS ORDERED: fentaNYL INJ 100 MCG/2 ML AMP ONE (08:17)
[2020-07-21] MEDS ORDERED: HURRICAINE EXT TUBE (BENZOCAINE) ONE (08:19)
--- NOTE | 2020-07-21 08:54 | Pre-Op Note & Conscious Sedat ---
Pre-Operative Progress Note H&P Reviewed The H&P was reviewed, patient examined and no changes noted. Date H&P Reviewed: Jul 21, 2020 Time H&P Reviewed: 08:00 Conscious Sedation Pre-Proced ASA Score 2 For ASA 3 and 4: Consider anesthesia and medical clearance. Also, for patients with a history of failed moderate sedation consider anesthesia. Airway Lungs Heart ASA score ASA 1: a normal healthy patient ASA 2: a patient with a mild systemic disease (mid diabetes, controlled hypertension, obesity ASA 3: a patient with a severe systemic disease that limits activity (angina, COPD, prior Myocardial infarction) ASA 4: a patient with an incapacitating disease that is a constant threat to life (CHF, renal failure) ASA 5: a moribund patient not expected to survive 24 hrs. (ruptured aneurysm) ASA 6: a declared brain- patient whose organs are being harvested. For emergent operations, add the letter E after the classification Mallampati Classification Grade 2 Sedation Plan Analgesia, Amnesia, Plan communicated to team members, Discussed options with patient/fam, Discussed risks with patient/fam The patient is an appropriate candidate to undergo the planned procedure, sedation, and anesthesia. The patient immediately re-assessed prior to indication. XANDER ALEXANDER MD Jul 21, 2020 08:54
--- NOTE | 2020-07-21 15:12 | OPERATIVE REPORT ---
DATE OF SERVICE: EGD SUMMARY INDICATION FOR THE PROCEDURE: Surveillance EGD due to history of short segment Colin's with dysphagia. DESCRIPTION OF PROCEDURE: The patient was placed in the left lateral decubitus position. The endoscope was inserted in the oral cavity and under direct visualization, esophagus was intubated. The endoscope was passed down the esophagus through the stomach and second portion of the duodenum. Careful inspection was made as the endoscope was withdrawn. The patient tolerated the procedure well. FINDINGS: The posterior pharynx, arytenoid aperture, true and false vocal folds and epiglottis were unremarkable to visual inspection. The proximal, mid and distal esophagus were unremarkable. There is a small to moderate size, approximately 2 cm hiatal hernia noted. There were no overt changes today of definitive Colin's. Biopsies were obtained four quadrant and submitted for histopathology. No evidence for stricture formation or esophagitis were noted. Photographs were obtained. The cardia, fundus, antrum, pylorus, pyloric channel, duodenal bulb and second portion of duodenum were unremarkable to visual inspection. ASSESSMENT: Small to moderate size proximal 2 cm hiatal hernia is present without evidence for erosive esophagitis. Biopsies were obtained for evaluation of the previous short segment Colin's. No other abnormalities were noted on today's EGD. We will await histopathology before recommending future surveillance and EGD recommendations. Job ID: [id number] DocumentID: [id number] Dictated Date: 07/21/2020 10:22:40 Dress Operator Date: 07/21/2020 15:11:25 Dictated By: XANDER ALEXANDER MD
== END 2020-07-21 09:15 | disposition home or self-care (01) ==
LOC: ENDO 07:32
PROVIDERS: ATTEND Internal Medicine
DX: K22.719 Barrett's esophagus with dysplasia, unspecified (principal); K20.90 Esophagitis, unspecified without bleeding; R42 Dizziness and giddiness; H93.19 Tinnitus, unspecified ear; H91.90 Unspecified hearing loss, unspecified ear; K44.9 Diaphragmatic hernia without obstruction or gangrene; Z20.822 Contact with and (suspected) exposure to COVID-19
CPT/HCPCS: 88305

== ENCOUNTER 2021-06-27 15:35 | Emergency (ER) | payer MEDICARE, OTHER ==
[~2021-06-27] VITALS: Ht 165 cm; Wt 81.0 kg
[~2021-06-27 15:35] MED LIST changes: -D5 LR IV SOLUTION 1,000 ML IV ONE
[2021-06-27 15:40] VITALS: BP 140/93
--- NOTE | 2021-06-27 15:55 | ED General ---
General Chief Complaint: General Problems/Pain Stated Complaint: CHOKING Nursing Triage Note: ARRIVED VIA AMB TO ROOM 05. STATES APPLX 30 MINS [employer]IFICIAL [employer] WORK[employer] HE WAS EATING CHINEESE CHICKEN AND SOME OF IT WAS LODGED IN HIS THROAT. INITIALLY HE HAD TROUBLE SWALLOWING BUT NOW HE IS ABLE TO SWALLOW WITHOUT DIFFICULTY. Source of Information: Patient Exam Limitations: No Limitations History of Present Illness Date Seen by Provider: Jun 27, 2021 Time Seen by Provider: 15:50 Initial Comments To ER with reports of a piece of chicken stuck in his throat. This was Spanish chicken that he was eating just prior to arrival. History of GERD with esophagitis. He had been on Protonix until about 3 days ago when he self discontinued. Has never had food stuck before. He tried to drink some water at home and quickly regurgitated that. While in the emergency room waiting area he believes that he passed the food as he is now able to swallow his own secretions and does not have the foreign body sensation in his throat. Timing/Duration: 1-2 Days Severity: Moderate Associated Systoms: Denies Symptoms Allergies and Home Medications Allergies Coded Allergies: No Known Drug Allergies (Unverified , 11/26/19) Patient Home Medication List Home Medication List Reviewed: Yes Pantoprazole Sodium (Pantoprazole Sodium) 40 Mg Tablet.dr, 40 MG PO DAILY, (Reported) Entered as Reported by: ALBERTA VERA on 11/26/19 1157 Triamterene/Hydrochlorothiazid (Triamterene-Hctz 75-50 mg Tab) 1 Each Tablet, 1 EACH PO DAILY, (Reported) Entered as Reported by: JEREMY GARCIA on 07/17/20 1000 Zolpidem Tartrate (Ambien) 10 Mg Tablet, 10 MG PO HS, (Reported) Entered as Reported by: ALBERTA VERA on 11/26/19 1157 Review of Systems Review of Systems Constitutional: see HPI EENTM: see HPI Respiratory: no symptoms reported Cardiovascular: no symptoms reported Genitourinary: no symptoms reported Musculoskeletal: no symptoms reported Skin: no symptoms reported Psychiatric/Neurological: No Symptoms Reported Hematologic/Lymphatic: No Symptoms Reported Immunological/Allergic: no symptoms reported Past Iwxqaso-Qbbequ-Ptccsu Hx Immunizations Up To Date Tetanus Booster (TDap): Less than 5yrs Seasonal Allergies Seasonal Allergies: Yes Past Medical History Surgeries: Yes (UMBILICAL HERNIA, RIGHT KNEE SCOPE, L SHOULDER) Abdominal, Orthopedic Respiratory: No Cardiac: Yes Hypertension Neurological: No Vertigo Reproductive Disorders: No Sexually Transmitted Disease: No HIV/AIDS: No Genitourinary: No Gastrointestinal: Yes (HEPATITIS C--S/P INTERFERON AND RIBAVARIN TREATMENT) Gastroesophageal Reflux Musculoskeletal: No Endocrine: No HEENT: No (PARTIAL DENTURE) Loss of Vision: Denies Hearing Impairment: Denies Cancer: No Psychosocial: Yes Sleep Difficulties Integumentary: No Blood Disorders: No Adverse Reaction/Blood Tranf: No (N/A) Physical Exam Vital Signs Vital Signs - First Documented 06/27/21 15:40 Temp 36.1 Pulse 81 Resp 16 B/P (MAP) 140/93 (109) Pulse Ox 96 O2 Delivery Room Air Capillary Refill : Less Than 3 Seconds Height, Weight, BMI Height: 5'5.00" Weight: 180lbs. oz. 81.460030jv; 29.00 BMI Method:Stated General Appearance: No Apparent Distress, WD/WN, Other (We gave him a glass of ice water and he was able to swallow this without regurgitation.) Eyes: Bilateral Eye Normal Inspection, Bilateral Eye PERRL, Bilateral Eye EOMI Neck: Full Range of Motion, Normal Inspection Respiratory: No Accessory Muscle Use, No Respiratory Distress Cardiovascular: Regular Rate, Rhythm, Normal Peripheral Pulses Gastrointestinal: Normal Bowel Sounds, Non Tender, Soft Extremity: Normal Capillary Refill, Normal Inspection Neurologic/Psychiatric: Alert, Oriented x3 Skin: Normal Color, Warm/Dry Progress/Results/Core Measures Suspected Sepsis SIRS Temperature: Pulse: 81 Respiratory Rate: 16 Blood Pressure 140 /93 Mean: 109 Results/Orders Vital Signs/I&O 06/27/21 15:40 Temp 36.1 Pulse 81 Resp 16 B/P (MAP) 140/93 (109) Pulse Ox 96 O2 Delivery Room Air Capillary Refill : Less Than 3 Seconds Blood Pressure Mean: 109 Departure Impression Primary Impression: Dysphagia Disposition: 01 HOME, SELF-CARE Condition: Stable Departure-Patient Inst. Decision time for Depature: 15:55 Referrals: XANDER NEAL MD (PCP/Family) Primary Care Physician Patient Instructions: Dysphagia Add. Discharge Instructions: 1. Follow a very soft diet of pudding and mashed potato and Jell-O consistency for the next 24 to 48 hours. Resume your Protonix. Follow-up with Dr. Neal. All discharge instructions reviewed with patient and/or family. Voiced understkelsey gerber. SHAGGY ARIZA APRN Jun 27, 2021 15:55
== END 2021-06-27 16:07 | disposition home or self-care (01) ==
LOC: EDUNIT# 15:35 → ER 15:39
DX: R13.10 Dysphagia, unspecified (principal); I10 Essential (primary) hypertension; K21.9 Gastro-esophageal reflux disease without esophagitis; Z79.899 Other long term (current) drug therapy
CPT/HCPCS: 99281

== ENCOUNTER 2021-12-12 06:07 | Outpatient (CLI) | payer MEDICARE, OTHER ==
[~2021-12-12] VITALS: Ht 165.1 cm; Wt 80.7 kg
== END 2021-12-12 09:00 | disposition home or self-care (01) ==
LOC: PREOP 06:07
PROVIDERS: ATTEND Internal Medicine
DX: Z01.818 Encounter for other preprocedural examination (principal)

== ENCOUNTER 2021-12-21 08:47 | Day surgery (SDC) | payer MEDICARE, OTHER ==
--- NOTE | 2021-12-12 10:03 | HISTORY AND PHYSICAL ---
DATE OF SERVICE: COLONOSCOPY HISTORY AND PHYSICAL HISTORY OF PRESENT ILLNESS: The patient is a 66-year-old white male with past history of colon polyps. He last underwent colonoscopy 7 years ago. This reportedly has had some bowel habit change, 3 to 4 stools, most mornings, no nocturnal diarrhea. He has noted no blood in the stool. He has noticed that his belly button has turned out. He can reduce it sometimes. He has had some mild associated discomfort. There has been no persistent swelling or erythema. Weight has been relatively stable. PHYSICAL EXAMINATION: GENERAL: Reveals a white male, appeared to be in no acute distress. VITAL SIGNS: Weight 178.4 pounds, blood pressure 128/82. CHEST: Clear. CARDIOVASCULAR: Reveals a regular rate and rhythm without murmur, S3 or S4. Small reducible umbilical hernia noted. No mass or organomegaly noted. No tenderness noted. Bowel sounds positive. EXTREMITIES: Reveal no cyanosis, clubbing or edema. ASSESSMENT AND PLAN: The patient is being set up for surveillance colonoscopy due to bowel habit change and past history of colon polyps. We will perform a digital rectal evaluation at the time of the procedure. Prep instructions were given and questions were answered. The patient will keep a regular schedule followup in February for a flu shot at that time. Job ID: [id number] DocumentID: [id number] Dictated Date: 11/28/2021 17:23:16 Tariff Supervisor Date: 11/28/2021 17:35:11 Dictated By: XANDER ALEXANDER MD
[~2021-12-21] VITALS: Ht 165 cm; Wt 80.7 kg
[2021-12-21] MEDS ORDERED: LACTATED RINGERS 1,000 ML IV STA (08:52)
[2021-12-21] MEDS ORDERED: LACTATED RINGERS 1,000 ML IV ONE (09:00)
[2021-12-21 09:15] VITALS: BP 129/85
--- NOTE | 2021-12-21 10:02 | Pre-Op Note & Conscious Sedat ---
Pre-Operative Progress Note Date H&P Reviewed: Dec 21, 2021 Time H&P Reviewed: 10:02 Pre-Op Diagnosis: screening Conscious Sedation Pre-Proced ASA Score 2 For ASA 3 and 4: Consider anesthesia and medical clearance. Also, for patients with a history of failed moderate sedation consider anesthesia. Airway Lungs Heart ASA score ASA 1: a normal healthy patient ASA 2: a patient with a mild systemic disease (mid diabetes, controlled hypertension, obesity ASA 3: a patient with a severe systemic disease that limits activity (angina, COPD, prior Myocardial infarction) ASA 4: a patient with an incapacitating disease that is a constant threat to life (CHF, renal failure) ASA 5: a moribund patient not expected to survive 24 hrs. (ruptured aneurysm) ASA 6: a declared brain- patient whose organs are being harvested. For emergent operations, add the letter E after the classification Mallampati Classification Grade 3 Sedation Plan Analgesia, Amnesia, Plan communicated to team members, Discussed options with patient/fam, Discussed risks with patient/fam The patient is an appropriate candidate to undergo the planned procedure, sedation, and anesthesia. The patient immediately re-assessed prior to indication. XANDER ALEXANDER MD Dec 21, 2021 10:02
[2021-12-21] MEDS ORDERED: MIDAZOLAM 2 MG/2 ML (VERSED) VIAL ONE (10:20)
[2021-12-21] MEDS ORDERED: PROPOFOL INJECTION 50 ML IV ONE (10:21)
[2021-12-21 10:50] VITALS: BP 117/72
[2021-12-21 10:55] VITALS: BP 121/78
--- NOTE | 2021-12-21 10:55 | Progress Note-Post Operative ---
Post-Procedure Note Physician (s)/Costumer Assistant (s) Physician XANDER ALEXANDER MD Pre-Procedure Diagnosis Pre-Procedure Diagnosis: screening Post-Procedure Diagnosis Post-operative diagnosis: cecal and hepatic flexure polyps removed via hot forceps with moderate diffuse diverticular disease. XANDER ALEXANDER MD Dec 21, 2021 10:55
[2021-12-21 11:00] VITALS: BP 123/82
[2021-12-21 11:25] VITALS: BP 123/82
--- NOTE | 2021-12-21 13:09 | Anesthesia-General Post-Op ---
MAC Patient Condition Mental Status/LOC: Same as Preop Cardiovascular: Satisfactory Nausea/Vomiting: Absent Respiratory: Satisfactory Pain: Controlled Complications: Absent Post Op Complications Complications None Follow Up Care/Instructions Patient Instructions None needed. Anesthesiology Discharge Order Discharge Order Patient is doing well, no complaints, stable vital signs, no apparent adverse anesthesia problems. No complications reported per nursing. KEELY MARISCAL CRNA Dec 21, 2021 13:09
--- NOTE | 2021-12-21 20:19 | OPERATIVE REPORT ---
DATE OF SERVICE: COLONOSCOPY SUMMARY I am his primary care physician. DESCRIPTION OF PROCEDURE: The patient was placed in the left lateral decubitus position. Prior to undergoing colonoscopy, digital rectal evaluation was performed. Anal sphincter tone was normal and the perianal reflexes intact. Prostate is mildly enlarged and anodular on digital inspection. No other abnormalities were noted on digital inspection of anal canal or distal rectal vault. The colonoscope was then inserted into the rectum and under direct visualization advanced to cecum. The cecum was identified by identification of ileocecal valve and cecal strap. Photographic documentation was obtained. Careful inspection was made as the colonoscope withdrawn. Quality of prep was good. FINDINGS: There was no evidence for internal or external hemorrhoids. The rectal venous plexus was prominent. No other rectal abnormalities were noted. Because of diarrhea two biopsies were obtained from the rectum for evaluation for microscopic colitis. Moderate diverticular disease was noted predominantly in the sigmoid colon, but small diverticulum were noted throughout the remainder of the colon. There was no evidence for diverticulitis. Otherwise, the sigmoid colon, descending colon, splenic flexure, transverse colon, hepatic flexure and ascending colon were unremarkable. A sessile adenomatous appearing polyp, roughly 8 mm in size was noted in the cecum that was biopsied and ablated in 2 locations with no subsequent blood loss. A nonadenomatous appearing polyp was noted in the hepatic flexure. It too was biopsied and ablated and submitted for histopathology. ASSESSMENT: Two polyps were removed the more significant from the cecum, 8 mm in size, which was biopsied and ablated with the hot forceps. Moderate diverticular disease predominantly in the sigmoid colon, but noted throughout was present. Biopsies were obtained of the rectum and submitted for histopathology to evaluate for microscopic colitis considering diarrhea. We will await histopathology report with likely 5-year recommended screening interval. Job ID: [id number] DocumentID: [id number] Dictated Date: 12/21/2021 10:51:08 Blueprint Maker Date: 12/21/2021 20:19:21 Dictated By: XANDER ALEXANDER MD [facility]
== END 2021-12-21 11:36 | disposition home or self-care (01) ==
LOC: ENDO 08:47
PROVIDERS: ATTEND Internal Medicine
DX: R19.7 Diarrhea, unspecified (principal); K57.30 Diverticulosis of large intestine without perforation or abscess without bleeding; D12.0 Benign neoplasm of cecum; K63.5 Polyp of colon; K63.89 Other specified diseases of intestine; K21.9 Gastro-esophageal reflux disease without esophagitis; Z79.899 Other long term (current) drug therapy; Z86.010 Personal history of colon polyps

== ENCOUNTER → 2022-09-18 | Outpatient (CLI) | payer MEDICARE, OTHER ==
[2022-09-18 15:25] LABS: BASOPHILS % (AUTO) 0 % (0-10); EOSINOPHILS # (AUTO) 0.4 10^3/uL (0.0-0.3); EOSINOPHILS % (AUTO) 6 % (0-10); HEMATOCRIT 43 % (40-54); HEMOGLOBIN 13.9 g/dL (13.3-17.7); LYMPHOCYTES # (AUTO) 1.8 X 10^3 (1.0-4.0); LYMPHOCYTES % (AUTO) 25 % (12-44); MEAN CORPUSCULAR HEMOGLOBIN 29 pg (25-34); MEAN CORPUSCULAR HGB CONC 32 g/dL (32-36); MEAN CORPUSCULAR VOLUME 90 fL (80-99); MONOCYTES # (AUTO) 0.5 X 10^3 (0.0-1.0); MONOCYTES % (AUTO) 7 % (0-12); NEUTROPHILS # (AUTO) 4.4 X 10^3 (1.8-7.8); NEUTROPHILS % (AUTO) 62 % (42-75); PLATELET COUNT 210 10^3/uL (130-400)
[2022-09-18 15:40] LABS: ALBUMIN 4.2 GM/DL (3.2-4.5); BILIRUBIN,TOTAL 0.2 MG/DL (0.1-1.0); CALCIUM 8.9 MG/DL (8.5-10.1); CREATININE SERUM 0.95 MG/DL (0.60-1.30); POTASSIUM 4.1 MMOL/L (3.6-5.0); TOTAL PROTEIN 7.1 GM/DL (6.4-8.2)
--- NOTE | 2022-09-18 15:47 | Diagnostic Imaging Report ---
INDICATION: SOB, cough x 1 month COMPARISON: 03/07/2016. FINDINGS: Frontal and lateral views of the chest demonstrate normal heart size and pulmonary vascularity. The lungs are clear. There is no sign of infiltrate, pleural effusion or pneumothorax. The visualized osseous structures show no acute abnormality. IMPRESSION: No acute process. No sign of infiltrate, effusion or pneumothorax. Dictated by: Dictated on workstation # [id number]
== END ==
LOC: RAD 15:00
PROVIDERS: ATTEND Internal Medicine
DX: R06.02 Shortness of breath (principal); R05.9 Cough, unspecified
CPT/HCPCS: 36415; 71046; 80053; 83880; 85025; 85379